=== PATIENT | male | born 1960 | race American Indian/Alaskan Native ===

== ENCOUNTER 2020-08-13 14:57 | Observation (INO) | payer MEDICARE, OTHER ==
--- NOTE | 2020-08-13 16:07 | Emergency Department Report ---
ED General Adult HPI - General Chief complaint: Medical Clearance Stated complaint: RIPPED DIALYSIS PORT OUT Time Seen by Provider: 08/13/20 16:01 Source: EMS Mode of arrival: Ambulatory Limitations: Language Barrier, Physical Limitation - History of Present Illness Initial comments: Patient is a 59-year-old dialysis dependent male who went to dialysis earlier today and later took out his catheter which was in his right upper chest while he was either sleeping or laying down. Bleeding controlled prior to arrival. Patient without complaint at present time. Severity scale (0 -10): 2 - Related Data Allergies Allergy/AdvReac Type Severity Reaction Status Date / Time lisinopril Allergy Swelling Verified 08/13/20 18:16 Penicillins Allergy Swelling Verified 08/13/20 18:16 ED Review of Systems ROS: Stated complaint: RIPPED DIALYSIS PORT OUT Other details as noted in HPI Comment: All other systems reviewed and negative ED Past Medical Hx - Past Medical History Hx Hypertension: Yes Hx Diabetes: Yes Hx GERD: Yes Hx Renal Disease: Yes Hx Asthma: Yes Hx COPD: Yes Hx HIV: Yes - Surgical History Past Surgical History?: Yes Hx Open Heart Surgery: Yes - Social History Smoking Status: Never Smoker ED Physical Exam - General Limitations: Language Barrier, Physical Limitation General appearance: alert, in no apparent distress - Head Head exam: Present: atraumatic, normocephalic - Eye Eye exam: Present: normal appearance - ENT ENT exam: Present: mucous membranes moist - Neck Neck exam: Present: normal inspection - Respiratory Respiratory exam: Present: normal lung sounds bilaterally. Absent: respiratory distress - Cardiovascular Cardiovascular Exam: Present: regular rate, normal rhythm - GI/Abdominal GI/Abdominal exam: Present: soft, normal bowel sounds - Rectal Rectal exam: Present: deferred - Extremities Exam Extremities exam: Present: normal inspection - Back Exam Back exam: Present: normal inspection - Neurological Exam Neurological exam: Present: alert, oriented X3 - Psychiatric Psychiatric exam: Present: normal affect, normal mood - Skin Skin exam: Present: warm, dry, normal color, other (Punctate wound to right upper chest). Absent: rash ED Course Vital Signs 08/13/20 08/13/20 15:50 18:13 Temperature 98.2 F Pulse Rate 99 H Respiratory 18 18 Rate Blood Pressure 100/57 Blood Pressure 100/57 [Right] O2 Sat by Pulse 100 Oximetry - Reevaluation(s) Reevaluation #1: 08/13/20 19:19 Dr. Allen contacted, case discussed, recommends admit patient for permacath placement tomorrow. ED Medical Decision Making - Lab Data Result diagrams: 08/13/20 16:22 08/13/20 16:22 Labs 08/13/20 08/13/20 08/13/20 16:22 16:22 16:22 WBC 4.7 RBC 2.65 L Hgb 8.6 L Hct 26.6 L MCV 100 H MCH 33 H MCHC 32 RDW 14.9 Plt Count 222 Lymph % (Auto) 15.4 Gr[place]gs % (Auto) 11.7 H Eos % (Auto) 1.3 Baso % (Auto) 0.9 Lymph # (Auto) 0.7 L [place] # (Auto) 0.5 Eos # (Auto) 0.1 Baso # (Auto) 0.0 Seg Neutrophils % 70.7 H Seg Neutrophils # 3.3 PT 17.5 H INR 1.45 H Sodium 136 L Potassium 4.0 Chloride 98.5 Carbon Dioxide 26 Anion Gap 16 BUN 16 Creatinine 6.1 H Estimated GFR 9 BUN/Creatinine Ratio 3 Glucose 237 H Calcium 9.3 Vital Signs 08/13/20 08/13/20 15:50 18:13 Temperature 98.2 F Pulse Rate 99 H Respiratory 18 18 Rate Blood Pressure 100/57 Blood Pressure 100/57 [Right] O2 Sat by Pulse 100 Oximetry Critical care attestation.: If time is entered above; I have spent that time in minutes in the direct care of this critically ill patient, excluding procedure time. ED Disposition Clinical Impression: Complications, dialysis, catheter, mechanical Disposition: DC-09 OP ADMIT IP TO THIS HOSP Is pt being admited?: Yes Condition: Stable
[2020-08-13 16:53] LABS: Basophils % (Auto) 0.9 % (0.0-1.8); Eosinophils # (Auto) 0.1 K/mm3 (0.0-0.4); Eosinophils % (Auto) 1.3 % (0.0-4.3); Hematocrit 26.6 % (35.5-45.6); Hemoglobin 8.6 gm/dl (11.8-15.2); Lymphocytes # (Auto) 0.7 K/mm3 (1.2-5.4); Lymphocytes % (Auto) 15.4 % (13.4-35.0); Mean Corpuscular HGB Conc 32 % (32-34); Mean Corpuscular Volume 100 fl (84-94); Monocytes # (Auto) 0.5 K/mm3 (0.0-0.8); Monocytes % (Auto) 11.7 % (0.0-7.3); Platelet Count 222 K/mm3 (140-440); Red Blood Count 2.65 M/mm3 (3.65-5.03); Red Cell Distribution Width 14.9 % (13.2-15.2)
[2020-08-13 17:03] LABS: INR 1.45 (0.87-1.13)
[2020-08-13 17:05] LABS: Calcium 9.3 mg/dL (8.4-10.2)
[2020-08-13] MEDS ORDERED: ACETAMINOPHEN 325 MG TAB PO PRN (17:19)
[2020-08-13] MEDS ORDERED: ONDANSETRON 4 MG/2 ML INJ IV PRN (17:19)
[2020-08-13] MEDS ORDERED: ALBUTEROL 2.5 MG/3 ML NEBU IH PRN (17:19)
--- NOTE | 2020-08-13 17:19 | History and Physical Report ---
History of Present Illness Chief complaint: His catheter came out History of present illness: 59 YO Male with ESRD on HD(T,R,Sa), DM, GERD, Asthma, COPD, HIV, CAD S/P CABG, Coronavirus diagnosed 10 days ago and currently asymptomatic presents to ED for evaluation. Patient provides minimal history at the time my evaluation. Additional history taken from EMS staff, ED staff, as well as the patient caregiver. As per caregiver the patient accidentally dislodged his dialysis catheter while sleeping. EMS was notified and upon arrival the patient was found to be in distress and subsequently transported to [facility] for further care and evaluation of the aforementioned symptoms. The patient was seen and evaluated in the emergency department. All lab and imaging studies reviewed. Patient found to have dialysis catheter malfunction, end-stage renal disease, and asymptomatic coronavirus infection. Patient placed in observation status and admitted to medical floor. Patient placed on cardiac and isolation precautions. Vascular surgery service consulted. Patient is pending dialysis catheter placement. No further history is obtainable. No reports of fever, chills, chest pain, palpitations, shortness of breath, productive cough. Patient denies pain. Patient has decreased verbalization and is able to protect his airway without difficulty. Advanced care planning conducted in ED. Past History Past Medical History: COPD, diabetes, ESRD, GERD, HIV/AIDS Past Surgical History: CABG, Other (Dialysis access) Social history: . denies: smoking, alcohol abuse, prescription drug abuse Family history: diabetes, hypertension Medications and Allergies Allergies Allergy/AdvReac Type Severity Reaction Status Date / Time lisinopril Allergy Swelling Verified 08/13/20 18:16 Penicillins Allergy Swelling Verified 08/13/20 18:16 Review of Systems ROS unobtainable: due to mental status Exam - Constitutional Vitals: Temp Pulse Resp BP Pulse Ox 98.4 F 99 H 18 100/57 100 08/13/20 15:50 08/13/20 15:50 08/13/20 15:50 08/13/20 15:50 08/13/20 15:50 General appearance: Present: mild distress, obese - EENT Eyes: Present: PERRL ENT: hearing intact, clear oral mucosa - Neck Neck: Present: supple, normal ROM - Respiratory Respiratory effort: normal Respiratory: bilateral: CTA - Cardiovascular Heart Sounds: Present: S1 & S2. Absent: rub, click - Extremities Extremities: pulses symmetrical, No edema Peripheral Pulses: within normal limits - Abdominal General gastrointestinal: Present: soft, non-tender, non-distended, normal bowel sounds Male genitourinary: Present: normal - Integumentary Integumentary: Present: clear, warm, dry - Musculoskeletal Musculoskeletal: gait normal, strength equal bilaterally - Psychiatric Psychiatric: no appropriate mood/affect, no intact judgment & insight, no memory intact, no cooperative - Neurologic Neurologic: CNII-XII intact, moves all extremities, no gait normal Results - Labs CBC & Chem 7: 08/13/20 16:22 08/13/20 16:22 Labs: Abnormal lab results 08/13/20 08/13/20 08/13/20 Range/Units 16:22 16:22 16:22 RBC 2.65 L (3.65-5.03) M/mm3 Hgb 8.6 L (11.8-15.2) gm/dl Hct 26.6 L (35.5-45.6) % MCV 100 H (84-94) fl MCH 33 H (28-32) pg Waller % (Auto) 11.7 H (0.0-7.3) % Lymph # (Auto) 0.7 L (1.2-5.4) K/mm3 Seg Neutrophils % 70.7 H (40.0-70.0) % PT 17.5 H (12.2-14.9) Sec. INR 1.45 H (0.87-1.13) Sodium 136 L (137-145) mmol/L Creatinine 6.1 H (0.8-1.3) mg/dL Glucose 237 H (75-100) mg/dL Assessment and Plan - Patient Problems (1) End stage renal disease Current Visit: Yes Status: Acute Plan to address problem: Nephrology team consulted in ED, dialysis as per renal team, strict monitor urine output every shift, daily weight, monitor fluid balance, avoid nephrotoxic agents, (2) Coronavirus infection Current Visit: Yes Status: Acute Plan to address problem: Patient currently asymptomatic, contact precautions, isolation precautions (3) Complications, dialysis, catheter, mechanical Current Visit: Yes Status: Acute (4) HIV (human immunodeficiency virus infection) Current Visit: Yes Status: Acute Plan to address problem: Outpatient infectious disease follow-up. (5) DVT prophylaxis Current Visit: Yes Status: Acute Plan to address problem: SCD to bilateral lower extremities while in bed (6) Advance care planning Current Visit: Yes Status: Acute Plan to address problem: Disease education conducted, care plan discussed, prognosis discussed patient is full code, +30 minutes.
[2020-08-14 05:57] LABS: Calcium 9.4 mg/dL (8.4-10.2)
[2020-08-14] MEDS ORDERED: SODIUM CHLORIDE 0.9% 250ML 250 ML ONE (10:22)
[2020-08-14] MEDS ORDERED: HEPARIN/NS 5000 UNIT/500ML 500 ML IR ONE ×2 (10:22→11:38)
[2020-08-14] MEDS ORDERED: MIDAZOLAM 2 MG/2 ML INJ ONE (10:23)
[2020-08-14] MEDS ORDERED: fentaNYL 100 MCG/2 ML INJ ONE (10:23)
[2020-08-14] MEDS ORDERED: HEPARIN 10,000 UNITS/10 ML VIAL ONE (10:27)
--- NOTE | 2020-08-14 10:57 | Consultation ---
History of Present Illness - Reason for Consult Consult date: 08/14/20 Permacath Insertion Requesting physician: AHMET ADAMS - History of Present Illness The patient is a 59 year old male with a history of ESRD who had a right IJ Permacath. By report his permacath was inadvertently dislodge after his dialysis session yesterday. The bleeding was controlled however he was sent here for evaluation. The patient states he receives dialysis through a left Jessica Fistula. He is unsure how long he has had the permacath or the fistula. He recently had COVID-19 infection approximately 2 weeks ago. He has no additional complaints. Past History Past Medical History: CAD, COPD, diabetes, ESRD, GERD, HIV/AIDS, other (COVID-1 9) Past Surgical History: CABG, Other (Left Jessica Fistula Creation, Defibrillator insertion) Social history: . denies: smoking, alcohol abuse, prescription drug abuse Family history: diabetes, hypertension Medications and Allergies Allergies Allergy/AdvReac Type Severity Reaction Status Date / Time lisinopril Allergy Swelling Verified 08/13/20 18:16 Penicillins Allergy Swelling Verified 08/13/20 18:16 Active Meds: Active Medications Acetaminophen (Acetaminophen 325 Mg Tab) 650 mg PO Q4H PRN PRN Reason: Pain MILD(1-3)/Fever >100.5/MUNOZ Albuterol (Albuterol 2.5 Mg/3 Ml Nebu) 2.5 mg IH Q4HRT PRN PRN Reason: Shortness Of Breath Ondansetron HCl (Ondansetron 4 Mg/2 Ml Inj) 4 mg IV Q8H PRN PRN Reason: Nausea And Vomiting Sodium Chloride (Sodium Chloride 0.9% 10 Ml Flush Syringe) 10 ml IV BID KUSUM Last Admin: 08/14/20 10:21 Dose: 10 ml Documented by: Sodium Chloride (Sodium Chloride 0.9% 10 Ml Flush Syringe) 10 ml IV PRN PRN PRN Reason: LINE FLUSH Review of Systems All systems: negative Exam - Constitutional Vitals: Temp Pulse Resp BP Pulse Ox 98.8 F 98 H 16 137/86 97 08/14/20 02:08 08/14/20 02:08 08/14/20 02:08 08/14/20 02:08 08/14/20 08:15 General appearance: Present: no acute distress - Respiratory Respiratory effort: normal - Cardiovascular Rhythm: regular - Extremities Extremities: no ischemia, abnormal (Left arm AVF with thrill near the arterial inflow, pulsatile near cannulation zone with 2 large pseudoaneurysms) - Abdominal General gastrointestinal: Present: soft Male genitourinary: Present: deferred - Rectal Rectal Exam: deferred Results - Labs CBC & Chem 7: 08/13/20 16:22 08/14/20 04:30 Labs: Abnormal lab results 08/13/20 08/13/20 08/13/20 Range/Units 16:22 16:22 16:22 RBC 2.65 L (3.65-5.03) M/mm3 Hgb 8.6 L (11.8-15.2) gm/dl Hct 26.6 L (35.5-45.6) % MCV 100 H (84-94) fl MCH 33 H (28-32) pg Bowman % (Auto) 11.7 H (0.0-7.3) % Lymph # (Auto) 0.7 L (1.2-5.4) K/mm3 Seg Neutrophils % 70.7 H (40.0-70.0) % PT 17.5 H (12.2-14.9) Sec. INR 1.45 H (0.87-1.13) Sodium 136 L (137-145) mmol/L Creatinine 6.1 H (0.8-1.3) mg/dL Glucose 237 H (75-100) mg/dL POC Glucose (70-105) mg/dL 08/13/20 08/14/20 Range/Units 20:59 04:30 RBC (3.65-5.03) M/mm3 Hgb (11.8-15.2) gm/dl Hct (35.5-45.6) % MCV (84-94) fl MCH (28-32) pg Bowman % (Auto) (0.0-7.3) % Lymph # (Auto) (1.2-5.4) K/mm3 Seg Neutrophils % (40.0-70.0) % PT (12.2-14.9) Sec. INR (0.87-1.13) Sodium 135 L (137-145) mmol/L Creatinine 7.0 H (0.8-1.3) mg/dL Glucose 126 H (75-100) mg/dL POC Glucose 112 H (70-105) mg/dL Assessment and Plan The patient is a 59 year old male with a left jessica fistula with a venous outflow stenosis. Will set up for a fistulagram with possible intervention. He was given the risk, benefits, and alternatives and consented to the procedure.
[2020-08-14] MEDS: LIDOCAINE (2%) 20 MG/1 ML VIAL 20 ML MDV INFILTRATI ONE ×2 (11:20→11:53)
--- NOTE | 2020-08-14 12:28 | Operative Report ---
Operative Report Operative Report: Date of Procedure: 08/14/2020 Pre-operative Diagnosis: Complications of Dialysis Access Post-operative Diagnosis: Same Procedure(s): 1. Access Left Arm AV Fistula with 6 Togolese Sheath Venous 2. Access Left Arm AV Fistula with 6 [place]og[place]ese Sheath Arterial 3. Diagnostic Fistulogram with Central Venogram 4. Angioplasty Left Arm AV Fistula with 10 x 40 [place] Balloon in the Venous Outflow and 5 x 40 EverCross Balloon In the Arterial Inflow 5. Catheter in Left Radial Artery 6. Diagnostic Left Upper Extremity Angiogram 7. Radiologic Supervision with Interpretation 8. Monitored Moderate Sedation (Total Anesthesia Time: 39 Minutes) Surgeon: Ricardo Esparza M.D. Oracle Erp Developer: None Anesthesia: Local/Monitored Moderate Sedation Total Anesthesia Time: 39 Minutes EBL: Minimal Counts: Correct Complications: None Condition: Stable Specimen: None Indication: The patient is a 59-year-old male with a history of end-stage renal disease who was recently admitted after his right internal jugular permacath was dislodged. He is currently on hemodialysis through a left Jessica fistula in the fistula was found to have large pseudoaneurysms with pulsatile flow. Review of a diagnostic fistulogram possible intervention. He was given the risk, benefits, and alternative procedures and consented to the procedure. Angiographic Findings: The fistulogram revealed stents extending from just beyond the arterial anastomosis through the fistula including the cannulation zone and into the median cubital vein. There were 2 large pseudoaneurysms in the cannulation zone. There was stenosis ranging from 50 to 75% within the stents. The basilic vein and cephalic vein were atretic throughout the course. The outflow of the fistula was to the brachial vein which had approximately 80% stenosis over a short segment at the end of the stent and inflow into the vein. The remainder of the vein was patent without evidence of flow-limiting stenosis. The central venous system was patent without significant flow-limiting stenosis. The radial artery was patent without evidence of flow-limiting stenosis. There was approximately 60% stenosis of the arterial anastomosis. After intervention the fistula as well as the arterial anastomosis and venous outflow were patent with less than 50% residual stenosis. Description of Procedure: The patient was brought to the Ultra Sound Technician and laid in supine position. After a timeout was performed his left arm was prepped and draped in normal sterile fashion. Lidocaine was used to anesthetize the skin and soft tissue overlying the fistula near the arterial inflow and a 21-gauge micropuncture needle was used to access the fistula towards the venous outflow. A 0.018 micropuncture wire was advanced into the fistula and after removing the needle a 6 Togolese sheath was placed by Seldinger technique. A diagnostic fistulogram with central venogram was performed with the previously described findings. I advanced a 0.035 J-wire and vertebral catheter through the stents and into the brachial vein. I initially performed angioplasty of the venous outflow using an 8 x 100 [place] Balloon into the brachial vein and then used a 10 x 40 [place] Balloon throughout the venous outflow of the stents with a result of less than 15% residual stenosis. I then anesthetized the skin and soft tissue overlying the venous outflow of the fistula using 21-gauge micropuncture needle to access the fistula towards the arterial inflow. I advanced a 0.018 micropuncture wire into the fistula and after removing the needle placed a 6 Togolese sheath by Seldinger technique. I used a vertebral catheter and a 0.014 Choice PT wire and cannulated the proximal radial artery. I advanced the vertebral catheter into the proximal radial artery and performed a diagnostic right upper extremity angiogram with the previously described findings. I advanced the J-wire into the proximal radial artery performed angioplasty of the anastomosis with a 5 x 40 EverCross balloon with a result of less than 10% residual stenosis. I then used the 8 x 100 [place] Balloon to perform angioplasty of the stents within the arterial inflow with a result of less than 15% residual stenosis. At this point I removed all balloons and wires and used 4-0 chromic in pursestring fashion to close each entry site after removing the sheaths. The patient tolerated the procedure well and was transported back to his room in stable condition.
--- NOTE | 2020-08-14 14:53 | Discharge Summary ---
Providers - Providers Date of Admission: 08/13/20 17:19 Date of discharge: 08/14/20 Attending physician: SEAN PAUL Primary care physician: [employer]ER Hospitalization Condition: Stable Hospital course: The patient is a 59 year old male with a history of COVID-19 infection approximately 2 weeks ago, ESRD who had a right IJ Permacath was inadvertently dislodge after his dialysis session yesterday. The bleeding was controlled and he was sent here for evaluation. The patient states he that receives dialysis through a left Jessica Fistula. He is unsure how long he has had the permacath or the fistula. he found to have left jessica fistula with a venous outflow stenosis, Vascular surgery was consulted. ordered for fistulagram with possible intervention, s/p Angioplasty Left Arm AV Fistula. Patient tolerated the procedure well. His repeat Covid test was still positive. Patient was resting on room air and vitals noted to be stable, patient was then discharged back to rehabilitation center in stable condition. Disposition: DC/[place]-70 ANOTHER TYPE HLTHCARE Final Discharge Diagnosis (Prints w/discharge instructions): Dislodged PermCath. Malfunctioning left AV fistula. End-stage renal disease. COVID 19 positive Time spent for discharge: 34 min Core Measure Documentation - Palliative Care Palliative Care/ Comfort Measures: Not Applicable - Core Measures Any of the following diagnoses?: none Exam - Physical Exam Narrative exam: Limited physical exam due to COVID-19 pandemic to minimize transmission of the disease and to preserve PPE. Vital reviewed and stable. GENERAL: well-developed well-nourished elderly male lying on bed appeared to be in no discomfort. HEENT: Normocephalic. Atraumatic. NECK: Supple. CHEST/LUNGS: breathing nonlabored. HEART/CARDIOVASCULAR: Heart rate stable on telemetry ABDOMEN: Visibly not distended SKIN: There is no rash NEURO: No focal motor deficit. Follows command. MUSCULOSKELETAL: No joint effusion EXTRIMITY: No swelling, no cyanosis or clubbing. PSYCH: Cooperative. - Constitutional Vitals: Temp Pulse Resp BP Pulse Ox 98.5 F 89 18 120/65 99 08/14/20 13:18 08/14/20 13:18 08/14/20 13:18 08/14/20 13:18 08/14/20 13:18 Plan Activity: advance as tolerated Weight Bearing Status: Weight Bear as Tolerated Diet: renal Special Instructions: restrict fluid intake to (1.2L per day) Follow up with: PRIMARY CARE, [Primary Care Provider] - 7 Days
[2020-08-14 20:31] VITALS: BP 121/74
== END 2020-08-14 20:30 | disposition other institution (70) ==
LOC: ED 14:57 → 3A 17:19 → 3B-SURG 19:28 → 3A 08-14 01:59
PROVIDERS: ADMIT Internal Medicine; ATTEND Internal Medicine
DX: U07.1 COVID-19 (principal); T82.49XA Other complication of vascular dialysis catheter, initial encounter; I12.0 Hypertensive chronic kidney disease with stage 5 chronic kidney disease or end stage renal disease; N18.6 End stage renal disease; J44.9 Chronic obstructive pulmonary disease, unspecified; K21.9 Gastro-esophageal reflux disease without esophagitis; E11.22 Type 2 diabetes mellitus with diabetic chronic kidney disease; Z21 Asymptomatic human immunodeficiency virus [HIV] infection status; Z99.2 Dependence on renal dialysis; Z95.1 Presence of aortocoronary bypass graft
CPT/HCPCS: 36415; 36902; 80048; 82962; 85025; 85610; 99284; C1725; C1769; C1894; G0378; J1644; J2250; J3010; J7050; U0003; Q9967